=== PATIENT | female | born 1995 | race Caucasian/White ===

== ENCOUNTER 2020-12-24 19:50 | Emergency (ER) | payer OTHER ==
[~2020-12-24] VITALS: Ht 154.9 cm; Wt 74.8 kg
[2020-12-24 20:00] VITALS: BP 104/68
--- NOTE | 2020-12-24 20:03 | NUR ---
TO LOBBY A/W BED AMBULATORY
[2020-12-24] MEDS ORDERED: LIDOCAINE MPF 1% 5 ML ONE ×2 (22:47→23:23)
[2020-12-24] MEDS ORDERED: LIDOCAINE MPF 1% 10 MG/ML VIAL INJ ONE (23:25)
[2020-12-24] MEDS ORDERED: BACITRACIN OINT 500 UNITS/GM PKT TP ONE ×2 (23:36→23:40)
[2020-12-24] MEDS ORDERED: CEPH-588 PO (23:44)
[2020-12-24] MEDS ORDERED: cephALEXin 500 MG CAP PO ONE (23:45)
--- NOTE | 2020-12-25 00:14 | NUR ---
d/c with VSS. d/c education given .opportunity to ask questions given and answered. rx of keflex given.
== END 2020-12-25 00:13 | disposition home or self-care (01) ==
LOC: MED 19:50
DX: S61.412A Laceration without foreign body of left hand, initial encounter (principal); W22.8XXA Striking against or struck by other objects, initial encounter; Y93.89 Activity, other specified; Y92.89 Other specified places as the place of occurrence of the external cause; Y99.8 Other external cause status
CPT/HCPCS: 73130; 99283; J2001

== ENCOUNTER 2020-12-27 14:04 | Emergency (ER) | payer OTHER ==
[~2020-12-27] VITALS: Ht 162.6 cm; Wt 59.0 kg
[~2020-12-27 14:04] MED LIST: CEPH-588 PO
[2020-12-27 14:09] VITALS: BP 109/91
--- NOTE | 2020-12-27 14:15 | NUR ---
PT AMBULATED TO LOBBY
[2020-12-27 15:27] VITALS: BP 109/91
--- NOTE | 2020-12-27 15:27 | NUR ---
Patient discharged with v/s stable. Written and verbal after care instructions given and explained. Patient alert, oriented and verbalized understanding of instructions. Ambulatory with to car. All questions addressed prior to discharge. ID band removed. Patient advised to follow up with PMD. Opportunity to ask questions provided and answered.
--- NOTE | 2020-12-27 15:27 | NUR ---
PATIENT RECEIVED STITCHES HERE ON 12/24 FOR DEEP LACERATIONS CAUSED BY BREAKING GLASS IN HAND. PT WAS REFFERED TO ORTHOPEDIC SURGEON, BUT WAS TOLD BY HER PCP TO COME BACK TO ER. NO PMH NKDA
== END 2020-12-27 15:27 | disposition home or self-care (01) ==
LOC: MED 14:04
DX: S61.011D Laceration without foreign body of right thumb without damage to nail, subsequent encounter (principal); S61.212D Laceration without foreign body of right middle finger without damage to nail, subsequent encounter; S61.214D Laceration without foreign body of right ring finger without damage to nail, subsequent encounter; X58.XXXD Exposure to other specified factors, subsequent encounter
CPT/HCPCS: 99281

== ENCOUNTER 2020-12-29 11:32 | Emergency (ER) | payer OTHER ==
[~2020-12-29] VITALS: Ht 160 cm; Wt 64.4 kg
[2020-12-29 11:45] VITALS: BP 123/49
--- NOTE | 2020-12-29 11:50 | NUR ---
Patient to lobby.
--- NOTE | 2020-12-29 12:35 | NUR ---
pt ambulated to chair C.
--- NOTE | 2020-12-29 12:42 | NUR ---
X-Ray at bedside.
[2020-12-29 13:55] VITALS: BP 115/62
--- NOTE | 2020-12-29 13:55 | NUR ---
Patient discharged with v/s stable. Written and verbal after care instructions given and explained. Patient verbalized understanding. Ambulatory with steady gait. All questions addressed prior to discharge. Advised to follow up with PMD.
== END 2020-12-29 13:55 | disposition home or self-care (01) ==
LOC: MED 11:32
DX: S61.411D Laceration without foreign body of right hand, subsequent encounter (principal); W25.XXXD Contact with sharp glass, subsequent encounter
CPT/HCPCS: 73130; 99283

== ENCOUNTER 2021-01-01 14:28 | Emergency (ER) | payer OTHER ==
[~2021-01-01] VITALS: Ht 157.5 cm; Wt 64.4 kg
[2021-01-01 14:48] VITALS: BP 106/67
[2021-01-01] MEDS ORDERED: BACITRACIN OINT 500 UNITS/GM PKT TP ONE (15:21)
[2021-01-01] MEDS ORDERED: BACI1PAC6 TP (15:25)
[2021-01-01] MEDS: BACITRACIN OINT 500 UNITS/GM PKT TP ONE (15:32)
--- NOTE | 2021-01-01 15:35 | NUR ---
Patient discharged, written and verbal after care instructions given and explained. Patient alert, oriented and verbalized understanding of instructions. Ambulatory with steady gait. All questions addressed prior to discharge. ID band removed. Patient advised to follow up with PMD. Rx of BACITRACIN given. Patient educated on indication of medication including possible reaction and side effects. Opportunity to ask questions provided and answered. PATIENT SEEN AND TREATED BY LANI MAURICIO, NO NURSING INTERVENTIONS PROVIDED.
--- NOTE | 2021-01-01 15:35 | NUR ---
APPLIED DRESSING TO RIGHT PALM WITHOUT ANY ISSUES
== END 2021-01-01 15:35 | disposition home or self-care (01) ==
LOC: MED 14:28
DX: S61.411D Laceration without foreign body of right hand, subsequent encounter (principal); Z79.899 Other long term (current) drug therapy; X58.XXXD Exposure to other specified factors, subsequent encounter
CPT/HCPCS: 99282